=== PATIENT | female | born 1940 | race Caucasian/White ===

== ENCOUNTER 2024-10-28 07:47 | Emergency (ER) | payer MEDICARE, OTHER ==
[2024-10-28] VITALS (10 sets, daily range): BP systolic 92–130; BP diastolic 47–80; PULSE 80–151; RESP 12–28; TEMP 98–98.8; O2SAT 99
[~2024-10-28] VITALS: Ht 162.6 cm; Wt 75.6 kg
[~2024-10-28 07:47] MED LIST: AMIO200T76 PO; APIX5TAB3 PO; ATOR20TA66 PO; ESTR42.510; HYDR-3686 PO; LOPE-190 PO; METF-1203 PO; MULT-1141 PO; OMEP40CA21 PO
[2024-10-28 08:52] LABS: MEAN PLATELET VOLUME 8.4 FL (7.4-10.4); RED CELL DISTRIBUTION WIDTH 14.0 % (11.5-14.5)
[2024-10-28 09:07] LABS: CREATININE 0.83 MG/DL (0.40-0.90); TOTAL CARBON DIOXIDE 26.5 MMOL/L (24-32); eCRCL 42 ML/MIN; eGFR 65 ML/MIN
--- NOTE | 2024-10-28 10:38 | Physician Documentation ---
History of Present Illness ~ Chief Complaint: Rectal Bleeding Stated Complaint: WEAKNESS/RECTAL BLEEDING Time Seen by MD: 08:32 Source: patient, family Mode of Arrival: Dropped Off HPI patient presents with crampy abdominal pain and bloody stools. She recently underwent polypectomy at [place] for suspected new cancer on October 15. She is pending treatment plan. Today she developed several episodes of initially bright red blood followed by dark blood and dizziness. Weakness. No chest pain. Pain described as mild. Medication Reconciliation Allergies: Coded Allergies: Sulfa (Sulfonamide Antibiotics) (Verified Allergy, Unknown, 01/04/23) Scheduled Amiodarone Hcl (Cordarone), 1 TAB PO DAILY, (Reported) Apixaban (Eliquis), 1 TAB PO BID, (Reported) Atorvastatin Calcium (Atorvastatin Calcium), 1 TAB PO DAILY, (Reported) Hydroxyzine Hcl* (Atarax*), 1 TAB PO DAILY, (Reported) Metformin HCl (Metformin HCl), 1 TAB PO BID, (Reported) Mu-Vits-Min Th/Lycopene/Lutein (Centrum Silver Tablet), 1 EACH PO BID, (Repo rted) Omeprazole (Prilosec), 1 CAP PO DAILY, (Reported) Miscellaneous Medications Estradiol (Estradiol), (Reported) Loperamide HCl (Imodium A-D), PO, (Reported) Review of Systems Constitutional: Denies: fever Cardiovascular: Denies: chest pain, diaphoresis, lightheadedness Physical Exam Vital Signs: RN Vital Signs have been reviewed: Yes, Temperature: 98.0, Source: Oral, Heart Rate: 133, Respiratory Rate: 16, BP: 116/46, Pulse Oximetry: 98, Weight: 75.600 Oxygen Flow Rate: 0 Physical Exam pale, non toxic no jvd lungs ctab cardiac no murmur abdomen mild generalized ttp, no guarding or rebound. rectal: maroon colored stool. +heme occult. No gross hemorrhage. Progress Progress Note 0915 attempting transfer to [facility] for likely IR. [address] [facility] [address] prior to transfer 1200 patient has been difficult iv stick. Two u/s guided lines have both failed at CT. She is brought back to the room. We agreed with proceeding with central line. [address] however she became dizzy when sitting up to transfer to [facility]. Became hypotensive again. Given IVF. improving. EKG with diffuse st depressions, she has no chest pain. Still no blood per rectum. [address] 430 pm d/w radiologist agrees likely JASS active bleed. Prior to this has had normal H&H and relatively unchanged repeat H&H and no active bleeding on exam, now given CT findings and hypotension will reverse AC and transfuse regardless of hemoglobin levels. 510pm d/w Dr. Maria Guadalupe Wilson ED attending accepts for transfer Results/Orders Reviewed/noted all lab results: Yes Results/Orders Orders - TAMIKO MISHRA MD Chest,Single View (10/28/24 12:34) * Straight Cath* (10/28/24 13:51) Cta Abdomen Pelvis (10/28/24 ) Transfusion Informed Consent (10/28/24 16:18) Completed Orders - TAMIKO MISHRA MD Cbc/Diff (10/28/24 08:30) BMP (10/28/24 08:30) Lipase (10/28/24 08:30) CMP (10/28/24 08:30) Type And Screen (10/28/24 09:10) Iohexol 350mg/Ml 100ml (Omnipaque 350mg/ (10/28/24 09:38) Iohexol 350mg/Ml 100ml (Omnipaque 350mg/ (10/28/24 10:48) Hemogram (10/28/24 11:15) Chest,Single View (10/28/24 12:34) Urinalysis (10/28/24 12:49) Ringers Solution, Lacted (Lactated Ringe (10/28/24 13:05) LA (10/28/24 13:01) 15 Lead Ekg (10/28/24 ) Troponin (Single) (10/28/24 13:34) Pantoprazole 40mg Iv (Protonix 40mg Iv) (10/28/24 13:50) Occult Bld Stool (10/28/24 13:38) Iohexol 350mg/Ml 100ml (Omnipaque 350mg/ (10/28/24 13:59) Cta Abdomen Pelvis (10/28/24 ) Lrpc - Active Bleeding (10/28/24 16:18) Pt Inr (10/28/24 16:18) PTT (10/28/24 16:18) Hum Prothromb Cplx-Lans (Balfaxar 500 Un (10/28/24 16:25) Medications Received in ER Medications (Trade) Dose Ordered Sig/Coy Route PRN Reason Start Time Stop Time Status Last Admin Dose Admin Lactated Ringer's 1,000 ml @ 1,000 mls/hr ONCE ONCE IV 10/28/24 13:05 10/28/24 14:04 DC 10/28/24 13:21 1,000 MLS/HR (Protonix 40mg IV) 40 mg ONCE ONCE IV 10/28/24 13:50 10/28/24 13:51 DC 10/28/24 13:52 40 MG Prothrombin Complex Concent (Human) 2000 unit/ IV Solution 80 ml @ 500 mls/hr ONCE ONCE IV 10/28/24 16:25 10/28/24 16:34 DC 10/28/24 17:07 500 MLS/HR Vital Signs 10/28/24 10/28/24 10/28/24 10/28/24 07:49 08:05 08:07 09:15 Temp 98.0 98.0 Pulse 115 115 133 Resp 16 18 18 16 B/P (MAP) 120/74 112/70 (84) 116/46 (69) Pulse Ox 99 98 98 O2 Flow Rate 0 0 0 10/28/24 10/28/24 10/28/24 10/28/24 10:41 12:33 13:35 14:47 Temp 98.0 98.0 98.0 Pulse 117 128 132 129 Resp 21 18 16 18 B/P (MAP) 122/64 (83) 97/57 (70) 95/52 (66) 91/54 (66) Pulse Ox 97 98 96 98 O2 Flow Rate 0 0 0 0 10/28/24 10/28/24 10/28/24 10/28/24 16:18 16:56 17:14 17:44 Temp 98.0 98.5 98.5 98.5 Pulse 144 141 151 119 Resp 18 28 22 18 B/P (MAP) 102/59 (73) 110/78 99/65 98/55 Pulse Ox 98 O2 Flow Rate 0 10/28/24 10/28/24 10/28/24 17:50 18:09 18:23 Temp 98.5 98.8 Pulse 122 130 125 Resp 21 18 24 B/P (MAP) 98/55 (69) 121/65 102/47 Pulse Ox 96 O2 Flow Rate 0 Laboratory Tests Test 10/28/24 08:30 10/28/24 08:42 10/28/24 09:26 10/28/24 11:24 Troponin I High Sensitivity 17 White Blood Count 12.7 H 13.0 H Red Blood Count 3.43 L 3.24 L Hemoglobin 10.4 L 9.8 L Hematocrit 31.1 L 29.3 L Mean Corpuscular Volume 90.5 90.3 Mean Corpuscular Hemoglobin 30.3 30.2 Mean Corpuscular Hemoglobin Concent 33.5 33.5 Red Cell Distribution Width 14.0 14.1 Platelet Count 280 281 Mean Platelet Volume 8.4 8.2 Neutrophils (%) (Auto) 79.7 H Lymphocytes (%) (Auto) 12.0 L Monocytes (%) (Auto) 7.5 Eosinophils (%) (Auto) 0.5 Basophils (%) (Auto) 0.3 Neutrophils # (Auto) 10.1 H Lymphocytes # (Auto) 1.5 Monocytes # (Auto) 1.0 H Eosinophils # (Auto) 0.1 Basophils # (Auto) 0.0 CBC Comment Sodium Level 136 Potassium Level 3.9 Chloride Level 101 Carbon Dioxide Level 26.5 Anion Gap 9 Blood Urea Nitrogen 11 Creatinine 0.83 Estimated GFR/1.73 m2 65 BUN/Creatinine Ratio 13.3 Glucose Level 107 H Calcium Level 7.8 L Total Bilirubin 0.5 Aspartate Amino Transf (AST/SGOT) 18 Alanine Aminotransferase (ALT/SGPT) 20 Alkaline Phosphatase 60 Total Protein 5.6 L Albumin 2.5 L Globulin 3.1 Albumin/Globulin Ratio 0.8 L Lipase 156 H Chemistry Comments Lactic Acid Level 0.8 Hematology Comments Test 10/28/24 13:38 10/28/24 13:44 10/28/24 16:39 Stool Occult Blood Positive H Urine Specimen Description Straight cath Urine Color Yellow Urine Clarity Clear Urine pH 6.5 Urine Specific [place] 1.010 Urine Protein Negative Urine Glucose (UA) Negative Urine Ketones 15 H Urine Occult Blood Negative Urine Nitrite Negative Urine Bilirubin Negative Urine Urobilinogen 0.2 Urine Leukocyte Esterase Negative Volume Urine Centrifuged 10 ml Urine Comment Prothrombin Time 12.5 H INR International Normalized Ratio 1.2 Activated Partial Thromboplast Time 27 Coagulation Comments EKG/XRAY/CT/US/VASC/MRI EKG : Additional Comment EKG independently interpreted by myself shows diffuse ST depressions, ST elevation lead AVR. afib rate 137 Departure Disposition: 02 SHORT TERM HOSPITAL Impression: Primary Impression: Atrial fibrillation with RVR Additional Impression: GI bleed Qualified Codes: K92.2 - Gastrointestinal hemorrhage, unspecified Referrals: NO PRIMARY CARE PROVIDER (PCP) Critical Care Note Total Time (mins): 121 Critical Care Note The very real possibility of a deterioration of this patient's condition required the highest level of my preparedness for sudden, emergent intervention. I provided critical care services, which included medication orders, frequent reevaluations of the patient's condition and response to treatment, ordering and reviewing test results, and discussing the case with various consultants. Excludes time spent performing separately billable procedures. The critical care time associated with the care of the patient was 120 minutes in the active management of GI bleed requiring anticoagulation reversal and transfusion Signature Scribe Signature: [email or web address] Attestation: TAMIKO Bourne MD Oct 28, 2024 10:38
[2024-10-28 11:32] LABS: MEAN PLATELET VOLUME 8.2 FL (7.4-10.4); RED CELL DISTRIBUTION WIDTH 14.1 % (11.5-14.5)
[2024-10-28] MEDS: ringers solution, lacted 1,000 ML IV ONE (13:21)
--- NOTE | 2024-10-28 13:28 | ELECTROCARDIOGRAPH REPORT ---
[facility] Test Date: 2024-10-28 Test Time: 13:26:10 Pat Name: EVERETT WILLOUGHBY Department: EMERGENCY ROOM Room: Gender: F Lace Winder: KAMALA : 1940 Requested By: TAMIKO MISHRA Order Number: [id number] Reading MD: Dr. James Torres Measurements Intervals [place] Rate: 137 P: 0 MS: 0 QRS: -12 QRSD: 72 T: -87 QT: 292 QTc: 441 Interpretive Statements Atrial fibrillation Paired ventricular premature complexes Abnormal R-wave progression, early transition LVH with secondary repolarization abnormality Inferior infarct, age indeterminate Electronically Signed On 10-31-2024 19:16:[address] James Torres Please click the below link to view image of tracing.
--- NOTE | 2024-10-28 13:54 | RADIOLOGY REPORT ---
DI CHEST,SINGLE VIEW, HISTORY: s/p cvc COMPARISON: None None TECHNICAL DATA: 1 view of the chest was obtained. FINDINGS: Lines and tubes: Left central line with tip in SVC.Cardiomediastinal silhouette: normal Pulmonary vasculature: normal Lung expansion: normal Lung airspace: normal Lung interstitium: normal Pleura: normal Pneumothorax: no Bones: Unremarkable Other: no IMPRESSION: No acute intrathoracic abnormality. Left central line with tip in SVC.
[2024-10-28 14:05] LABS: LEUKOCYTE ESTERASE ,URINE NEGATIVE (Neg); NITRITES, URINE NEGATIVE (Neg); OCCULT BLOOD,URINE NEGATIVE (Neg)
[2024-10-28 14:06] LABS: UA COLLECTION TYPE STRAIGHT CATH
[2024-10-28 14:32] LABS: OCCULT BLOOD STOOL POSITIVE (Neg)
--- NOTE | 2024-10-28 16:19 | RADIOLOGY REPORT ---
Procedure: CT CTA ABDOMEN PELVIS Reason for study/Clinical History: GIB Comparison Study: None Technique: CT angiography of the abdomen pelvis was performed. Coronal and sagittal reformatted images are subm itted. 3D images/MIP were performed and reviewed for reporting. Radiation Dose Information: CT Dose: CTDI volume is 23.9 mGy. Dose-length product is 1186.1 mGy*cm FINDINGS: Vascular: No evidence of abdominal aortic aneurysm or dissection. Atherosclerotic calcifications in the abdomin al aorta and branches. No arterial occlusion. Mild stenosis of the celiac artery near the origin. T he superior and inferior mesenteric arteries are patent. Bilateral renal arteries, splenic and hepat ic arteries are patent. Curvilinear focus of contrast within the cecum consistent with active arteria l extravasation probably from a branch of the inferior mesenteric artery. Lung Bases: No acute or significant lung base finding. Normal heart size. No pleural or pericardial e ffusion. Liver: The liver is normal in size. Diffusely hypoattenuating liver parenchyma consistent with hepati c steatosis. No focal lesions. Normal hepatic vascular enhancement. Gallbladder and Biliary Tree: Unremarkable gallbladder. No biliary ductal dilatation. Spleen: Unremarkable Pancreas: The pancreas is normal in appearance without focal lesions or abnormal enhancement. Adrenal Glands: Unremarkable Kidneys: Kidneys demonstrate normal symmetric enhancement without focal lesions, calculi or hydroneph rosis. Bladder: Unremarkable Bowel: The stomach is grossly normal in appearance. Dilated small bowel loops. Liquid stool in the c olon. Surgical clips in the cecum. High attenuating fluid in the cecum consistent with active contra st extravasation. Colonic diverticulosis without acute diverticulitis. No acute appendicitis. Peritoneal cavity: No pneumoperitoneum. No ascites. Lymphadenopathy: No mesenteric, retroperitoneal or periportal lymphadenopathy. Pelvic Organs: Unremarkable Musculoskeletal: No aggressive focal bony lesions, acute fractures or dislocation. Age-indeterminate L2 compression deformity. Soft tissues: Fat containing inguinal hernias bilaterally. IMPRESSION: 1. Active arterial contrast extravasation within the cecal lumen compatible with active gastrointesti nal hemorrhage. This could be from a branch of the inferior mesenteric artery. 2. Colonic diverticulosis without acute diverticulitis. 3. Hepatic steatosis. All CT scans at this medical facility are performed using dose modulation techniques as appropriate t o a performed exam including the following: Automated exposure control was utilized; adjustment of th e MA and/or KV according to patient size; and use of iterative reconstruction technique.
[2024-10-28 16:59] LABS: APTT 27 SECONDS (22-32); INR 1.2 INR
[2024-10-28] MEDS: HUM PROTHROMB CPLX-LANS 2,000 UNIT in IV piggyback 80 ML IV ONE (17:07)
== END 2024-10-28 20:30 | disposition short-term general hospital (02) ==
LOC: ER 07:48
DX: I48.91 Unspecified atrial fibrillation (principal); K92.2 Gastrointestinal hemorrhage, unspecified; R10.9 Unspecified abdominal pain; R53.1 Weakness; Z88.2 Allergy status to sulfonamides; Z88.8 Allergy status to other drugs, medicaments and biological substances
CPT/HCPCS: 36415; 36430; 71045; 74174; 80053; 81003; 82272; 83605; 83690; 84484; 85025; 85027; 85610; 85730; 86885; 86900; 86901; 86920; 93005; 96361; 96365; 96375; 99291; 99292; C1751; C1758; C1894; C9132; J2470; J7030; J7120; P9016; Q9967; J7168